=== PATIENT | female | born 1975 ===

== ENCOUNTER 2022-06-20 21:08 | Observation (INO) ==
[2022-06-21] MEDS ORDERED: Naloxone 0.4 MG/ML INJ IVP PRN (00:11)
[2022-06-21] MEDS ORDERED: 0.9 % Sodium Chloride 1,000 ML IVC SCH (00:15)
[2022-06-21] MEDS ORDERED: *HR* LORazepam 0.5 MG TABLET PO ONE ×2 (01:30→10:54)
[2022-06-21 01:31] VITALS: TEMP 98
[2022-06-21] MEDS ORDERED: Acetaminophen 325 MG TABLET PO PRN (06:02)
[2022-06-21 10:20] LABS: Hematocrit 33.7 % (35.3-44.9); Hemoglobin 11.6 g/dL (11.5-15.4); Mean Corpuscular HGB Conc 34.4 g/dL (31.6-35.5); Mean Corpuscular Hemoglobin 28.9 pg (28.0-33.3); Mean Corpuscular Volume 83.8 fL (83.0-100.0); Mean Platelet Volume 9.4 fL (9.4-12.4); Platelet Count 325 K/mcL (140-400); Red Blood Count 4.02 M/mcL (3.82-4.97); White Blood Count 7.7 K/mcL (4.3-11.1)
[2022-06-21 10:37] LABS: Calcium 9.1 mg/dL (8.6-10.3); Potassium 3.5 mEq/L (3.5-5.1)
[2022-06-21] MEDS: 0.9 % Sodium Chloride 1,000 ML IVC SCH (10:43)
[2022-06-21] MEDS ORDERED: methocarbamoL 500 MG TABLET PO PRN (17:26)
[2022-06-21] MEDS: tiZANidine 4 MG TABLET PO PRN (17:38)
[2022-06-21] MEDS ORDERED: Ketorolac 30 MG/ML VIAL IVP ONE (20:54)
[2022-06-21] MEDS: Gabapentin 300 MG CAPSULE PO SCH (20:54)
[2022-06-21] MEDS: cloNIDine HCL 0.1 MG TABLET PO PRN (20:55)
[2022-06-21] MEDS ORDERED: Metoclopramide 10 MG/2 ML VIAL IVP ONE (20:56)
[2022-06-21] MEDS: Nicotine 21 MG PATCH.TD24 TD SCH (21:12)
[2022-06-22] MEDS: 0.9 % Sodium Chloride 1,000 ML IVC SCH (04:33)
[2022-06-22] MEDS ORDERED: lisinopriL 10 MG TABLET PO SCH (09:00)
[2022-06-22] MEDS: Gabapentin 300 MG CAPSULE PO SCH ×2 (09:07→13:32)
[2022-06-22] MEDS: tiZANidine 4 MG TABLET PO PRN (09:07)
[2022-06-22] MEDS: cloNIDine HCL 0.1 MG TABLET PO PRN (09:07)
[2022-06-22] MEDS: Nicotine 21 MG PATCH.TD24 TD SCH (09:07)
[2022-06-22] MEDS ORDERED: *HR* LORazepam 1 MG TABLET PO ONE (11:33)
[2022-06-22 15:04] VITALS: BP 143/79; PULSE 62; O2SAT 96
[2022-06-22 17:02] LABS: Influenza A PCR Negative (Negative); Influenza B PCR Negative (Negative); Resp. Syncytial Virus PCR Negative (Negative); SARS-CoV-2 by PCR (In House) Negative (Negative)
== END 2022-06-22 18:00 ==
LOC: EMEROOARM 21:08 → 3NENU 21:08
PROVIDERS: ADMIT Student in an Organized Health Care Education/Training Program; ATTEND Student in an Organized Health Care Education/Training Program

== ENCOUNTER 2022-06-22 18:18 | Inpatient (IN) ==
[2022-06-22] MEDS ORDERED: Haloperidol Lactate 5 MG/ML VIAL IM PRN (18:35)
[2022-06-22] MEDS ORDERED: Acetaminophen 325 MG TABLET PO PRN (18:35)
[2022-06-22] MEDS ORDERED: QUEtiapine Fumarate 25 MG TABLET PO PRN ×2 (18:35→18:40)
[2022-06-22] MEDS ORDERED: *HR* LORazepam 2 MG/ML VIAL IM PRN (18:35)
[2022-06-22] MEDS ORDERED: haloperidoL 5 MG TABLET PO PRN (18:35)
[2022-06-22] MEDS ORDERED: methocarbamoL 500 MG TABLET PO PRN (18:40)
[2022-06-22] MEDS: *HR* LORazepam 1 MG TABLET PO PRN (19:29)
[2022-06-22] MEDS ORDERED: risperiDONE 1 MG TABLET PO SCH (21:00)
[2022-06-22] MEDS: Gabapentin 300 MG CAPSULE PO SCH (21:41)
[2022-06-22] MEDS: *HR* Metformin 500 MG TABLET PO SCH (21:42)
[2022-06-22] MEDS: *HR* LORazepam 1 MG TABLET PO SCH (21:45)
[2022-06-22] MEDS: Mirtazapine 15 MG TABLET PO SCH (21:45)
[2022-06-22] MEDS: tiZANidine 4 MG TABLET PO PRN (21:47)
[2022-06-23] MEDS: tiZANidine 4 MG TABLET PO PRN (07:07)
[2022-06-23] MEDS ORDERED: Nicotine 14 MG PATCH.TD24 TD SCH (09:00)
[2022-06-23] MEDS ORDERED: lisinopriL 10 MG TABLET PO SCH (09:00)
[2022-06-23 10:25] VITALS: PULSE 90; TEMP 97.2; O2SAT 100
[2022-06-23] MEDS: *HR* LORazepam 1 MG TABLET PO SCH ×2 (10:29→19:24)
[2022-06-23] MEDS: *HR* Metformin 500 MG TABLET PO SCH ×2 (10:29→19:25)
[2022-06-23 10:30] VITALS: BP 130/80
[2022-06-23] MEDS: Gabapentin 300 MG CAPSULE PO SCH ×4 (10:30→19:24)
[2022-06-23] MEDS: *HR* LORazepam 1 MG TABLET PO PRN (14:36)
[2022-06-23] MEDS: Mirtazapine 15 MG TABLET PO SCH (19:24)
[2022-06-23] MEDS ORDERED: risperiDONE 1 MG TABLET PO SCH (20:00)
== END 2022-06-23 19:40 | disposition home or self-care (01) | DRG 817 ==
LOC: 1ANU 18:18
PROVIDERS: ADMIT Psychiatry & Neurology Psychiatry; ATTEND Psychiatry & Neurology Psychiatry